=== PATIENT | female | born 1980 | race African-American/Black ===

== ENCOUNTER 2017-05-04 21:41 | Emergency (ER) | payer BC ==
[~2017-05-04] VITALS: Ht 167.6 cm; Wt 97.2 kg
[2017-05-04 23:49] LABS: EOSINOPHIL (%) 1.6 % (0-5); EOSINOPHIL COUNT 0.1 K/uL (0-0.3); HEMATOCRIT 38.6 % (36.0-46.0); INSTRUMENT ABS NEUTROPHIL CT 1.6 K/uL; LYMPHOCYTE COUNT 2.5 K/uL (1.0-2.8); MCH 21.1 PG (29.0-34.0); MCHC 30.8 G/DL (30.0-36.0); MCV 68.3 FL (83-99); MEAN PLAT.VOLUME 8.5 uM^3 (9.5-12.4); MONOCYTE (%) 7.8 % (3-12); MONOCYTE COUNT 0.4 K/uL (0-0.8); NEUTROPHIL COUNT 1.6 K/uL (1.8-6.4); PLATELET COUNT 276 K/uL (156-360); RBC DIS.WIDTH-CV 15.5 % (11.8-14.6); RBC DIS.WIDTH-SD 37.5 % (39-53); RED BLOOD COUNT 5.65 M/uL (3.80-5.20); WHITE BLOOD COUNT 4.5 K/uL (4.1-10.2)
[2017-05-04 23:56] LABS: CHLORIDE 109 mEq/L (99-109); POTASSIUM 4.1 mEq/L (3.7-5.4); SODIUM 141 mEq/L (136-147)
[2017-05-04 23:58] LABS: GLUCOSE 88 mg/dL (70-99)
[2017-05-05] LABS: ANION GAP 11 MEQ/L (2-14)
[2017-05-05 00:02] LABS: GFR ESTIMATE (CALCULATED) > 59 mL/min/
[2017-05-05 00:03] LABS: UREA NITROGEN (BUN) 12 mg/dL (9-23)
[2017-05-05] MEDS ORDERED: ZYVOX600 MG PO (04:16)
[2017-05-05 04:27] VITALS: BP 132/81
== END 2017-05-05 04:28 | disposition home or self-care (01) ==
LOC: EME 21:41
PROVIDERS: Physician Assistant
DX: H05.012 Cellulitis of left orbit (principal); B20 Human immunodeficiency virus [HIV] disease; Z88.3 Allergy status to other anti-infective agents
CPT/HCPCS: 70481; 70487; 80048; 83605; 85025; 87040; 87070; 87075; 87077; 87181; 87205; 99281; 99285; J2543; J3370; J7030